=== PATIENT | female | born 1940 | race Caucasian/White ===

== ENCOUNTER 2017-10-08 12:07 | Outpatient (RCR) | payer MEDICARE, OTHER ==
[2017-03-04 14:13] VITALS: BMI 35.8
[~2017-10-08 12:07] MED LIST: ACIPHX20PT PO; ADV250/50 INH; ALB0.5 INH; ALB6.7R INH; ALLO-119 PO; AMLO-96 PO; AMLO-99 PO; BIOT250012 PO; CETI-176 PO; CETI10CA8 PO; ENAL-128 PO; ENAL20TA99 PO; ENOX100D6 SQ; ESCI20TA38 PO; ESOM40CA42 PO; FURO-45 PO; GLUC-135 PO; HCTZ25 PO; LACT1CAP6 PO; LEVO75TA73 PO; MET500 PO; MON10 PO; MULT1CAP41 PO; RABE20TA33 PO; SELE200T32 PO; VITE400 PO; WARF-1 PO; ZOLP-350 PO
[2017-10-11] MEDS ORDERED: METO25TA23 PO (13:18)
[2017-10-11] MEDS ORDERED: WARF-1 PO (13:18)
--- NOTE | 2017-10-13 13:48 | Transitional Care Management ---
Assessment Visit Type: Telephone Visit (10/13) Cardiac: WNL Except Cardiac Comment: 10/13 States she is doing wwell with the new Med- Metoprolol denies the "feeling wierd and dizzy" like one of the meds in the hospital. Doesn't notice any heart irregularities as she was having Respiratory Comment: 10/13 Wear the O2 24/7 and doing OK with tht. Sometimes I have to turn it up a little bit. Enc her to turn it back down once she is feeling less SOB. Uusally i "I start getting to actvie." GI: Nutrition: WNL Except GI Comment: 10/13 "It is going to be a great lerning curve to change my diet. The low NA+ and fluid consumtion, but I can and will do so" Wt Gain/Loss: WNL Except Weight Comment: 10/13 "I lost a fair amt of fluid while I was in the hospital and hope to keep it off. That was a miserable wt gain"Will work real hard to keep to the low sodium and fluid restriction" Constipation?: No Musculoskeletal, Exercise: WNL Except Musculoskeletal, Excercise Com: 10/13 "A little slow but that's OK better than not at all:" Enc her not to try and do to much and dwear herself out. To do sthings in short little periods. Integumentary: WNL Except Integumentary Comment: 10/13 a few bruises from IV stick but they slowly going away" Enc her to put a little heat on them if they were hurting. Feeling of Well Being: WNL Scheduled Follow-Up with Provi: Yes (10/[address] [facility] ) TCM Discharge Criteria Medication Knowledge: 10/13 Went over meds and particulary the new Metoporol. She is aware of her other meds and does use a pill box that she fills once a week. Disease Management/Concern/Wha: 10/13 Went ofve the yellow and red flags of CHF Transitional Care Comment: 10/08 review CHF teaching to include diet, fluid restriction, lasix, metalazone, activity, PCP f/u, monitor labs, bp's 10/13 Went over meds, importance of daily wts and documenting. Also monitoring BPand O2 sats.Will visit her at home tomorrow at 11 AM Copies to: KARELY PACHECO JOAN Oct 13, 2017 13:48
--- NOTE | 2017-10-14 13:28 | Transitional Care Management ---
Assessment Visit Type: Home Visit (10/14) Cardiac: WNL Except Cardiac Comment: 10/13 States she is doing well with the new Med- Metoprolol denies the "feeling wierd and dizzy" like one of the meds in the hospital. Doesn't notice any heart irregularities as she was having 10/14 Denies CP or fierd feelings Respiratory Comment: 10/13 Wear the O2 24/7 and doing OK with tht. Sometimes I have to turn it up a little bit. Enc her to turn it back down once she is feeling less SOB. Uusally i "I start getting to actvie." 10/14 Using 24/7. O2 sats usually aroung 97%. Still hs a very harsh loose cough that causes SOB when happening. Enc her to call Dr office and let him know. She also had a couple other quetions "didn't go home with any lasix nor antibiotics.Concerned about the cough" GI: Nutrition: WNL Except GI Comment: 10/13 "It is going to be a great learning curve to change my diet. The low NA+ and fluid consumtion, but I can and will do so" 10/14 working on the diet" It takes me awhile to change my mind set but I'm getting better at accepting the changes I need to make" Wt Gain/Loss: WNL Except Weight Comment: 10/13 "I lost a fair amt of fluid while I was in the hospital and hope to keep it off. That was a miserable wt gain"Will work real hard to keep to the low sodium and fluid restriction" 10/14 Wt today is down 1# "I feel good about that It means I'm trying" Constipation?: No : WNL Musculoskeletal, Exercise: WNL Except Musculoskeletal, Excercise Com: 10/13 "A little slow but that's OK better than not at all:" Enc her not to try and do to much and wear herself out. To do things in short little periods. 10/14 does have about 10 steps to go up/down to bedrooms-does have hand rails and appeared to be doing OK Integumentary: WNL Except Integumentary Comment: 10/13 a few bruises from IV stick but they slowly going away" Enc her to put a little heat on them if they were hurting. Feeling of Well Being: WNL Socialization: WNL Socialization Comment: 10/14 daughter lives in town and checks up with her and has a neighbor that comes over or calls daily Scheduled Follow-Up with Provi: Yes (10/[address] Pacheco on 10/16 ) Following Discharge Instructio: Yes TCM Discharge Criteria Medication Knowledge: 10/13 Went over meds and particulary the new Metoporol. She is aware of her other meds and does use a pill box that she fills once a week. Disease Management/Concern/Wha: 10/13 Went over the yellow and red flags of CHF 10/14 again went over the red/yellow flags. Transitional Care Comment: 10/08 review CHF teaching to include diet, fluid restriction, lasix, metalazone, activity, PCP f/u, monitor labs, bp's 10/13 Went over meds, importance of daily wts and documenting. Also monitoring BPand O2 sats.Will visit her at home tomorrow at 11 AM 10/14 Home visit. She has a large home which appeared clean and uncluttered. Had the green 50" O2 tubing come from upstairs bedroom. Stqates "I'm very aware of it.," "I know I have been grouchy the past couple of days but this is a big change for me." Encouraged her to be patient and it willl come together for her. She has an appointment with Dr Pacheco on afternoon. Enc her to call him today about her concerns so she isn't worring about them for the next couple of days. I think she has some good questions. Copies to: KARELY PAHCECO JOAN Oct 14, 2017 13:28
--- NOTE | 2017-10-24 14:03 | Transitional Care Management ---
Assessment Visit Type: Telephone Visit (10/24 Sofiya) Cardiac: WNL Except Cardiac Comment: 10/13 States she is doing well with the new Med- Metoprolol denies the "feeling wierd and dizzy" like one of the meds in the hospital. Doesn't notice any heart irregularities as she was having 10/14 Denies CP or funny feelings 10/24 Denies any CP or "funny feelings" Respiratory Comment: 10/13 Wear the O2 24/7 and doing OK with tht. Sometimes I have to turn it up a little bit. Enc her to turn it back down once she is feeling less SOB. Uusally i "I start getting to actvie." 10/14 Using 24/7. O2 sats usually aroung 97%. Still hs a very harsh loose cough that causes SOB when happening. Enc her to call Dr office and let him know. She also had a couple other quetions "didn't go home with any lasix nor antibiotics.Concerned about the cough" 10/24 Feels like she is doing really well. "the cough has resolved" GI: Nutrition: WNL Except GI Comment: 10/13 "It is going to be a great learning curve to change my diet. The low NA+ and fluid consumtion, but I can and will do so" 10/14 working on the diet" It takes me awhile to change my mind set but I'm getting better at accepting the changes I need to make" 10/[address] and they gave e a list of the vegetables that I can have and that made me feel better as I eat a fair amt of veggies" Wt Gain/Loss: WNL Except Weight Comment: 10/13 "I lost a fair amt of fluid while I was in the hospital and hope to keep it off. That was a miserable wt gain"Will work real hard to keep to the low sodium and fluid restriction" 10/14 Wt today is down 1# "I feel good about that It means I'm trying" 10/24 'I'm down 2 more #. I'm working on the low NA+ and fluid restriction and think I'm finally grasping it" Constipation?: No : WNL Musculoskeletal, Exercise: WNL Except Musculoskeletal, Excercise Com: 10/13 "A little slow but that's OK better than not at all:" Enc her not to try and do to much and wear herself out. To do things in short little periods. 10/14 does have about 10 steps to go up/down to bedrooms-does have hand rails and appeared to be doing OK 10/24 "gettting around well. Been out to lunch a couple times with friends and I've been doing things around the house and wear my O2 all the time and it is usually aroung 89-9%" Integumentary: WNL Except Integumentary Comment: 10/13 a few bruises from IV stick but they slowly going away" Enc her to put a little heat on them if they were hurting. Feeling of Well Being: WNL Socialization: WNL Socialization Comment: 10/14 daughter lives in town and checks up with her and has a neighbor that comes over or calls daily10/24 "Have been going out but called my job and told them I probably won't be back until the of the year. I don't want to be around sick people at this time!" Scheduled Follow-Up with Jerry: Yes (10/[address] Pacheco on [place] 10/16 ) Following Discharge Instructio: Yes TCM Discharge Criteria Medication Knowledge: 10/13 Went over meds and particulary the new Metoporol. She is aware of her other meds and does use a pill box that she fills once a week. Disease Management/Concern/Wha: 10/13 Went over the yellow and red flags of CHF 10/14 again went over the red/yellow flags. 10/24 wnt frances her medications and she is very comfortable reiting what she is on. We wnt over the red flags and when to go to DR or ER Transitional Care Comment: 10/08 review CHF teaching to include diet, fluid restriction, lasix, metalazone, activity, PCP f/u, monitor labs, bp's 10/13 Went over meds, importance of daily wts and documenting. Also monitoring BPand O2 sats.Will visit her at home tomorrow at 11 AM 10/14 Home visit. She has a large home which appeared clean and uncluttered. Had the green 50" O2 tubing come from upstairs bedroom. Stqates "I'm very aware of it.," "I know I have been grouchy the past couple of days but this is a big change for me." Encouraged her to be patient and it willl come together for her. She has an appointment with Dr Pacheco on afternoon. Enc her to call him today about her concerns so she isn't worring about them for the next couple of days. I think she has some good questions. 10/21 Unable to contact-left message 10/24 Sofiya sounded very chiper on the phone. "States "I'm trying to do some [place] baking and shopping and I find I'm much stronger even than before I got really sick--In fact I've only taken 1 nap since I've beenhome." Copies to: KARELY PACHECO JOAN Oct 24, 2017 14:03
--- NOTE | 2017-11-08 17:11 | Transitional Care Management ---
Assessment Visit Type: Telephone Visit (11/08 Sofiya) Cardiac: WNL Except Cardiac Comment: 10/13 States she is doing well with the new Med- Metoprolol denies the "feeling wierd and dizzy" like one of the meds in the hospital. Doesn't notice any heart irregularities as she was having 10/14 Denies CP or funny feelings 10/24 Denies any CP or "funny feelings" 11/08 went to see the talent acquisition sourcer- they were going to do a heart cath-but it didn"t happen. Her tests were never done Respiratory Comment: 10/13 Wear the O2 24/7 and doing OK with tht. Sometimes I have to turn it up a little bit. Enc her to turn it back down once she is feeling less SOB. Uusally i "I start getting to actvie." 10/14 Using 24/7. O2 sats usually aroung 97%. Still hs a very harsh loose cough that causes SOB when happening. Enc her to call Dr office and let him know. She also had a couple other quetions "didn't go home with any lasix nor antibiotics.Concerned about the cough" 10/24 Feels like she is doing really well. "the cough has resolved" 11/08 GI: Nutrition: WNL Except GI Comment: 10/13 "It is going to be a great learning curve to change my diet. The low NA+ and fluid consumtion, but I can and will do so" 10/14 working on the diet" It takes me awhile to change my mind set but I'm getting better at accepting the changes I need to make" 10/[address] and they gave e a list of the vegetables that I can have and that made me feel better as I eat a fair amt of veggies" 11/08 "I didn't do well with the my diet program this past week or so.{" Wt Gain/Loss: WNL Except Weight Comment: 10/13 "I lost a fair amt of fluid while I was in the hospital and hope to keep it off. That was a miserable wt gain"Will work real hard to keep to the low sodium and fluid restriction" 10/14 Wt today is down 1# "I feel good about that It means I'm trying" 10/24 'I'm down 2 more #. I'm working on the low NA+ and fluid restriction and think I'm finally grasping it" 11/08 Gained 10 " but I'm ready to get with the program and start working on the diet." Constipation?: No : WNL Musculoskeletal, Exercise: WNL Except Musculoskeletal, Excercise Com: 10/13 "A little slow but that's OK better than not at all:" Enc her not to try and do to much and wear herself out. To do things in short little periods. 10/14 does have about 10 steps to go up/down to bedrooms-does have hand rails and appeared to be doing OK 10/24 "gettting around well. Been out to lunch a couple times with friends and I've been doing things around the house and wear my O2 all the time and it is usually aroung 89-92%" 11/08 Went to see the talent acquisition sourcer in [facility] Dr Rose and he took her of the O2 Sats have been around 89-90%. I encouraged her to wear it at night until she has the heart cath. Mobility Comment: 11/08 I'm getting around pretty well. Mostly in the house-have been to see Abdoulaye and 2 trips to [place] to see the Cardiologists as they were going to do a cardiac cath but it didn't happen as they wanted info from [facility] in [place] Integumentary: WNL Except Integumentary Comment: 10/13 a few bruises from IV stick but they slowly going away" Enc her to put a little heat on them if they were hurting. Feeling of Well Being: WNL Socialization: WN Socialization Comment: 10/14 daughter lives in town and checks up with her and has a neighbor that comes over or calls daily10/24 "Have been going out but called my job and told them I probably won't be back until the of the year. I don't want to be around sick people at this time!" Scheduled Follow-Up with Jerry: No (11/08 at this time she has no Dr appointments- Enc her to call someone on and get in to see one) Following Discharge Instructio: Yes TCM Discharge Criteria Medication Knowledge: 10/13 Went over meds and particulary the new Metoporol. She is aware of her other meds and does use a pill box that she fills once a week. Disease Management/Concern/Wha: 10/13 Went over the yellow and red flags of CHF 10/14 again went over the red/yellow flags. 10/24 wnt frances her medications and she is very comfortable reiting what she is on. We wnt over the red flags and when to go to DR or ER Transitional Care Comment: 10/08 review CHF teaching to include diet, fluid restriction, lasix, metalazone, activity, PCP f/u, monitor labs, bp's 10/13 Went over meds, importance of daily wts and documenting. Also monitoring BPand O2 sats.Will visit her at home tomorrow at 11 AM 10/14 Home visit. She has a large home which appeared clean and uncluttered. Had the green 50" O2 tubing come from upstairs bedroom. Stqates "I'm very aware of it.," "I know I have been grouchy the past couple of days but this is a big change for me." Encouraged her to be patient and it willl come together for her. She has an appointment with Dr Stanford on afternoon. Enc her to call him today about her concerns so she isn't worring about them for the next couple of days. I think she has some good questions. 10/21 Unable to contact-left message 10/24 Sofiya sounded very chiper on the phone. "States "I'm trying to do some [place] baking and shopping and I find I'm much stronger even than before I got really sick--In fact I've only taken 1 nap since I've been home." 11/08 Sofiya has been very disappointed with her out patient care. Still has a harsh cough and at her instance Dr Stanford did order her some Tesslon Pereles But didn't order her Lasix our K+. TEETEE ALCARAZ Nov 08, 2017 17:11
--- NOTE | 2017-11-15 16:44 | Transitional Care Management ---
Assessment Visit Type: Telephone Visit (Sofiya) Cardiac: WNL Except Cardiac Comment: 10/13 States she is doing well with the new Med- Metoprolol denies the "feeling wierd and dizzy" like one of the meds in the hospital. Doesn't notice any heart irregularities as she was having 10/14 Denies CP or funny feelings 10/24 Denies any CP or "funny feelings" 11/08 went to see the pilot fuel engineer- they were going to do a heart cath-but it didn"t happen. Her tests were never done Respiratory Comment: 10/13 Wear the O2 24/7 and doing OK with tht. Sometimes I have to turn it up a little bit. Enc her to turn it back down once she is feeling less SOB. Uusally i "I start getting to actvie." 10/14 Using 24/7. O2 sats usually aroung 97%. Still hs a very harsh loose cough that causes SOB when happening. Enc her to call Dr office and let him know. She also had a couple other quetions "didn't go home with any lasix nor antibiotics.Concerned about the cough" 10/24 Feels like she is doing really well. "the cough has resolved" 11/08 GI: Nutrition: WNL Except GI Comment: 10/13 "It is going to be a great learning curve to change my diet. The low NA+ and fluid consumtion, but I can and will do so" 10/14 working on the diet" It takes me awhile to change my mind set but I'm getting better at accepting the changes I need to make" 10/[address] and they gave e a list of the vegetables that I can have and that made me feel better as I eat a fair amt of veggies" 11/08 "I didn't do well with the my diet program this past week or so.{" Wt Gain/Loss: WNL Except Weight Comment: 10/13 "I lost a fair amt of fluid while I was in the hospital and hope to keep it off. That was a miserable wt gain"Will work real hard to keep to the low sodium and fluid restriction" 10/14 Wt today is down 1# "I feel good about that It means I'm trying" 10/24 'I'm down 2 more #. I'm working on the low NA+ and fluid restriction and think I'm finally grasping it" 11/08 Gained 10 " but I'm ready to get with the program and start working on the diet." Constipation?: No : WNL Musculoskeletal, Exercise: WNL Except Musculoskeletal, Excercise Com: 10/13 "A little slow but that's OK better than not at all:" Enc her not to try and do to much and wear herself out. To do things in short little periods. 10/14 does have about 10 steps to go up/down to bedrooms-does have hand rails and appeared to be doing OK 10/24 "gettting around well. Been out to lunch a couple times with friends and I've been doing things around the house and wear my O2 all the time and it is usually aroung 89-92%" 11/08 Went to see the pilot fuel engineer in [facility] Dr Rose and he took her of the O2 Sats have been around 89-90%. I encouraged her to wear it at night until she has the heart cath. Mobility Comment: 11/08 I'm getting around pretty well. Mostly in the house-have been to see Abdoulaye and 2 trips to [place] to see the Cardiologists as they were going to do a cardiac cath but it didn't happen as they wanted info from [facility] in [place] Integumentary: WNL Except Integumentary Comment: 10/13 a few bruises from IV stick but they slowly going away" Enc her to put a little heat on them if they were hurting. Feeling of Well Being: WNL Socialization: WN Socialization Comment: 10/14 daughter lives in town and checks up with her and has a neighbor that comes over or calls daily10/24 "Have been going out but called my job and told them I probably won't be back until the of the year. I don't want to be around sick people at this time!" Scheduled Follow-Up with Jerry: No (11/08 at this time she has no Dr appointments- Enc her to call someone on and get in to see one) Following Discharge Instructio: Yes TCM Discharge Criteria Medication Knowledge: 10/13 Went over meds and particulary the new Metoporol. She is aware of her other meds and does use a pill box that she fills once a week. Disease Management/Concern/Wha: 10/13 Went over the yellow and red flags of CHF 10/14 again went over the red/yellow flags. 10/24 wnt frances her medications and she is very comfortable reiting what she is on. We wnt over the red flags and when to go to DR or ER Transitional Care Comment: 10/08 review CHF teaching to include diet, fluid restriction, lasix, metalazone, activity, PCP f/u, monitor labs, bp's 10/13 Went over meds, importance of daily wts and documenting. Also monitoring BPand O2 sats.Will visit her at home tomorrow at 11 AM 10/14 Home visit. She has a large home which appeared clean and uncluttered. Had the green 50" O2 tubing come from upstairs bedroom. Stqates "I'm very aware of it.," "I know I have been grouchy the past couple of days but this is a big change for me." Encouraged her to be patient and it willl come together for her. She has an appointment with Dr Stanford on afternoon. Enc her to call him today about her concerns so she isn't worring about them for the next couple of days. I think she has some good questions. 10/21 Unable to contact-left message 10/24 Sofiya sounded very chiper on the phone. "States "I'm trying to do some [place] baking and shopping and I find I'm much stronger even than before I got really sick--In fact I've only taken 1 nap since I've been home." 11/08 Sofiya has been very disappointed with her out patient care. Still has a harsh cough and at her instance Dr Stanford did order her some Tesslon Pereles But didn't order her Lasix our K+. 11/15 Doing OK- No c/o. Jozef mccoy from the program TEETEE ALCARAZ Nov 15, 2017 16:44
== END 2017-11-18 08:13 | disposition home or self-care (01) ==
LOC: TCM 12:07
PROVIDERS: ATTEND Nurse Practitioner
DX: Z02.9 Encounter for administrative examinations, unspecified (principal)

== ENCOUNTER → 2017-11-18 | Outpatient (CLI) | payer MEDICARE, OTHER ==
[2017-03-04 14:13] VITALS: BMI 35.8
[~2017-11-18] MED LIST changes: +METO25TA23 PO
[2017-11-18 13:25] LABS: PLATELET COUNT, AUTOMATED 272 K/uL (150-450)
[2017-11-19 09:41] LABS: INR 1.08
== END ==
LOC: LAB 13:02
PROVIDERS: ATTEND Internal Medicine Cardiovascular Disease
DX: Z01.812 Encounter for preprocedural laboratory examination (principal); I42.9 Cardiomyopathy, unspecified
CPT/HCPCS: 36415; 82310; 82374; 82435; 82565; 82947; 84132; 84295; 84520; 85025; 85610

== ENCOUNTER → 2017-12-18 | Outpatient (CLI) | payer MEDICARE, OTHER ==
[2017-03-04 14:13] VITALS: BMI 35.8
== END ==
LOC: RESP 00:58
PROVIDERS: ATTEND Family Medicine
DX: J98.4 Other disorders of lung (principal)
CPT/HCPCS: 94060; 94726; 94729

== ENCOUNTER → 2018-01-22 | Outpatient (CLI) | payer MEDICARE, OTHER ==
[2017-03-04 14:13] VITALS: BMI 35.8
--- NOTE | 2018-01-22 16:15 | EKG ---
[place] [facility] [place] CHRISTIANO JAFFE : [id number] MR: [id number] V: [id number] EXAM DATE: ORDERING PHYSICIAN: KARELY PACHECO TECHNOLOGIST: Mejia Daly Reason : Blood Pressure : / mmHG Vent. Rate : 062 BPM Atrial Rate : 062 BPM P-R Int : 174 ms QRS Dur : 106 ms QT Int : 506 ms P-R-T Axes : 088 -25 027 degrees QTc Int : 513 ms Normal sinus rhythm Incomplete right bundle branch block Nonspecific ST and T wave abnormality Prolonged QT Abnormal ECG When compared with ECG of 10-OCT-2017 14:29, Incomplete right bundle branch block is now present Confirmed by NAY ADAMS ([id number]) on 01/22/2018 6:01:21 PM Referred By: KARELY PACHECO Confirmed By:NAY ADAMS
== END ==
LOC: CARD 15:34
PROVIDERS: ATTEND Family Medicine
DX: E87.6 Hypokalemia (principal); R94.31 Abnormal electrocardiogram [ECG] [EKG]
CPT/HCPCS: 93005

== ENCOUNTER → 2018-01-24 | Outpatient (CLI) | payer MEDICARE, OTHER ==
[2017-03-04 14:13] VITALS: BMI 35.8
== END ==
LOC: LAB 12:16
PROVIDERS: ATTEND Family Medicine
DX: R19.7 Diarrhea, unspecified (principal)
CPT/HCPCS: 83630; 87045; 87324; 87449

== ENCOUNTER → 2018-03-09 | Outpatient (RCR) | payer MEDICARE, OTHER ==
[2017-03-04 14:13] VITALS: BMI 35.8
[2017-12-09 12:19] VITALS: BP 140/78
[2017-12-09 12:21] VITALS: BP 134/80
--- NOTE | 2017-12-09 13:10 | CARDIAC REHAB PLAN OF CARE ---
Physician: Abdoulaye Patient is being seen: [facility] Diagnosis: Afib, Stent x1 Date of Initial Evaluation: 12/09/17 SHORT TERM GOALS Short Term Goals Due Date: 01/07/18 Short Term Goals: Primary goals to achieve within the first month include increasing exercise tolerance and progression towards higher METS and longer exercise duration. Patient will start her first two weeks of exercise with a HR goal between 100-112bpm, METS of 2.5, and total duration fo 20 minutes. Following the first two weeks, patient's goal will be to increase METS and total duration while maintaining consistent HR range. Short Term Goals Met: Short Term Goals Not Met Due To: DUAL HOSE CEMENTER GOALS Fdc Goal Due Date: Fdc Goals: Long terms goals include gradually increasing total exercise duration towards the recommended 150min/wk of moderate intensity aerobic activity. Improvement in exercise tolerance is also targeted, with goals of maintaining SPO2 levels at 90% or above on room air if possible. We would also like to see resting BP levels reach a more safe and controlled range (e.g. 120/ 80). Geospatial Image Analyst Goals Met: Fdc Goals Not Met Due To: PATIENT'S GOALS Patient Goals Due Date: Patient Goals: Patients goals include becoming less breathless which can be monitored and targeted via sign/symptom reporting as well as SPO2 levels. Patient would also like to lose 15lbs and lose the "stiff" feeling within her joints. Patient Goals Met: Patient Goals Not Met Due To: Cardiac Rehabilitation Plan of Care Comment: The Cardiac Rehab team will help assist with the above goals by monitoring the patient's BP, SPO2, HR, and ECG telemetry with each exercise session. Education and information will be provided regularly and as necessary in order to assist with healthy behavior change. Patient's exercise prescription will be reassessed every 2 weeks pending regular class attendance, in order to aid in proper exercise progression. JUSTINE
[2017-12-10 18:00] VITALS: BP 132/74
[2017-12-10 18:01] VITALS: BP 130/70
[2017-12-12 13:16] VITALS: BP_SYST 116; BP_SYST 124; BP_DIAS 68; BP_DIAS 74
[2017-12-15 12:52] VITALS: BP_SYST 128; BP_SYST 136; BP_DIAS 68; BP_DIAS 72
[2017-12-17 12:33] VITALS: BP_SYST 116; BP_SYST 124; BP_DIAS 58; BP_DIAS 72
[2017-12-19 16:52] VITALS: BP_SYST 102; BP_SYST 122; BP_DIAS 64; BP_DIAS 90
[2017-12-22 17:28] VITALS: BP 118/64
[2017-12-22 17:29] VITALS: BP 108/58
[2017-12-24 18:24] VITALS: BP 124/64
[2017-12-24 18:25] VITALS: BP 110/60
[2017-12-26 11:31] VITALS: BP 138/72
[2017-12-26 11:32] VITALS: BP 122/66
[2017-12-29 12:54] VITALS: BP 120/60
[2017-12-29 12:55] VITALS: BP 112/60
[2018-01-02 17:31] VITALS: BP 118/62
[2018-01-02 17:35] VITALS: BP 114/66
[2018-01-05 12:51] VITALS: BP 122/72
[2018-01-05 12:52] VITALS: BP 120/60
--- NOTE | 2018-01-07 15:16 | CARDIAC REHAB PLAN OF CARE ---
Physician: Walker FLORENTINO Patient is being seen: Nasra Veronique Medical Diagnosis: STENT x1 Date of Onset: 12/09/17 SHORT TERM GOALS Short Term Goals Due Date: 02/04/18 Short Term Goals: Primary goals to achieve within the next month include increasing exercise tolerance and progression towards higher METS and longer exercise duration. Patient will start her first two weeks of exercise with a HR goal between 100-112bpm, Our new goal will be to try to maintain her HR above 100bpm during all exercise. We will aim to increase METs to 3.0 with a goal of reaching 3.5 by the end of the next month Short Term Goals Met: Patient has attended 12 sessions thus far and has successfully increased her average MET level from 1.7 to 2.5-2.8 METS. She has also increased her total duration of exercise from 25 minutes to 37 minutes. She is getting closer to our goal of 150min/week. Short Term Goals Not Met Due To: Patient has met most goals but struggles to keep her HR in the 100-112bpm range. With staff encouragement I believe she would have no problem maintaining this range. DIRECTOR COMMUNICATIONS GOALS Assisted Goal Due Date: 02/06/18 Assisted Goals: Long terms goals include gradually increasing total exercise duration towards the recommended 150min/wk of moderate intensity aerobic activity. Improvement in exercise tolerance is also targeted, with goals of maintaining SPO2 levels at 90% or above on room air if possible. We would also like to see resting BP levels reach a more safe and controlled range (e.g. 120/ 80). Assisted Goals Met: Supervisor Fruit Grading Goals Not Met Due To: PATIENT'S GOALS Patient Goals Due Date: 02/04/18 Patient Goals: Patients goals include becoming less breathless which can be monitored and targeted via sign/symptom reporting as well as SPO2 levels. Patient would also like to lose 15lbs and lose the "stiff" feeling within her joints. Patient Goals Met: The patient has reported losing some of the stiffness previously noted in her right shoulder. This has been noted as she begins to use it more often during her aerobic exercise on the NuStep. She also has begun to use it more during her weight training session. This improvement was noted after only a few days of exercise. Patient maintains a optimistic and happy mood which has improved over the course of the exercise program. Patient Goals Not Met Due To: Staff has yet to monitor patient's weight, but it has not been self reported by the patient as having changed. We will periodically record the patient's weight to monitor her progress. Patient also maintains an SPO2 level of 88% or above. We would like this to maintain above 90% if possible, and will continue to provide breathing techniques to help. Cardiac Rehabilitation Plan of Care Comment: Staff will continue to monitor exercise vitals including ECG, BP, HR, and SPO2 to maintain safe exercise parameters. We will use this information to continue the patient's progression. This patient responds well to positive encouragement, thus we will continue to positively reinforce the information and progressions we provide. Information pertaining to proper exercise breathing techniques will be provided to help patient maintain SPO2 saturation. TAMMID
[2018-01-26 12:48] VITALS: BP 118/60
[2018-01-26 12:49] VITALS: BP 142/70
[2018-01-28 12:47] VITALS: BP_SYST 128; BP_DIAS 70; BP_DIAS 72
[2018-01-30 16:48] VITALS: BP 110/70
[2018-01-30 16:49] VITALS: BP 120/58
[2018-02-02 13:37] VITALS: BP 130/68
[2018-02-02 13:40] VITALS: BP 124/66
[2018-02-04 13:02] VITALS: BP 120/70
[2018-02-04 13:03] VITALS: BP 120/68
--- NOTE | 2018-02-04 15:20 | CARDIAC REHAB PLAN OF CARE ---
Physician: DO Abdoulaye Patient is being seen: Veronique Hammonds Medical Diagnosis: Stent x 1 Date of Initial Evaluation: 12/09/2017 INTERVENTIONS: SHORT TERM GOALS Short Term Goals Due Date: 03/09/18 Short Term Goals: Primary goals to achieve within the next month include increasing exercise tolerance and progression towards higher METS and increase average exercise heart rate range. Patient will aim over the next two weeks to maintain a HR above 100bpm. Overall her HR goal will be to maintain between 100-112bpm. We will aim to continue increasing METs to 3.0 with a goal of reaching 3.5 by the end of the next month. Short Term Goals Met: Over the past two sessions, the patient has reached (on occasion) 3.0 METs on average. We would like to see this achieved more consistently. With encouragement she has no difficulty reaching this level, but lacks the motivation to do it on her own which leads to inconsistency. Short Term Goals Not Met Due To: The patient has only attended 5 sessions since her previous care plan update. She was in [place] visiting [facility] where she did continue to do some mild activity (e.g. walking). Upon returning to [place] , she suffered from bowel movement changes with frequent diarrhea, which has depleted her potassium levels. Since then she has not been feeling well and slowly reacclimatizing herself to regular exercise. She has been been taking supplemental potassium as a result. She has also been experiencing low oxygen levels during exercise, with SPO2 levels dropping down to 83%. In such cases we have given her supplemental oxygen at 2L to maintain adequate saturation levels. Due to all of these set backs, the patient has not increased her exercise time nor energy expenditure over the past month. SENIOR CARE GOALS Long-Term Goal Due Date: 04/08/18 Long-Term Goals: Long terms goals reaching the total exercise duration to the recommended 150min/wk of moderate intensity aerobic activity. The patient is currently reaching (on average) 110min/week during her time here at cardiac rehab.Improvement in exercise tolerance is also targeted, with goals of maintaining SPO2 levels at 90% or above on room air if possible, with a new goal of no longer needing the supplemental oxygen. Long-Term Goals Met: Patient's BP goal (of averaging BP close to 120/80) has been achieved over the previous 2 weeks. This has particularly been noticeable post exercise, which her highest recording being 128/70. This is great improvement from her initial evaluations when her blood pressure averaged 130s or 140s/90 mmHg.Looking back on her initial eval, she has greatly increased her exercise duration (from 17 minutes now achieving 40 minutes), and her overall MET level (from 1.7 to now 3.0). Call Manager Goals Not Met Due To: The patient has seen a lot of set backs over the past month, which has halted some of her m[facility]p progress. She has not reached 150min/week but is progressing towards that goal. PATIENT'S GOALS Patient Goals Due Date: 03/09/18 Patient Goals: Patients goals include becoming less breathless which can be monitored and targeted via sign/symptom reporting as well as SPO2 levels-- including overall being relieved from supplemental oxygen during exercise. Patient would maintains the goal to lose 15lbs. Patient Goals Met: Patient has made little progress towards her personal goals. Her range of motion and overall percevied pain level in her shoulder has decreased slightly, but still bothers her from time to time. Patient Goals Not Met Due To: She has not reported any weight loss, but as a staff we will help her monitor this measurement better in the future to note any improvements. Her SPO2 levels have regressed since beginning this program, but can be due to her recent set backs with her low potassium levels. Cardiac Rehabilitation Plan of Care Comment: We will continue to give the patient the encouragement she needs to suceed at achieving these higher levels of physical activity. She responds well to humor and personal attention and is more likely to reach higher MET levels when given such attention.To shear helper her goal of weight loss we will continue to provide nutritional information and encouraging exercise outside of cardiac rehab. JUSTINE
[2018-02-06 13:02] VITALS: BP 118/70
[2018-02-06 13:03] VITALS: BP 138/68
[2018-02-09 13:00] VITALS: BP_SYST 118; BP_SYST 130; BP_DIAS 60; BP_DIAS 72
[2018-02-09 13:04] VITALS: BP 122/78
[2018-02-11 13:01] VITALS: BP 130/60
[2018-02-11 16:52] VITALS: BP 116/66
[2018-02-13 17:01] VITALS: BP 120/72
[2018-02-13 17:03] VITALS: BP 117/72
[2018-02-16 13:30] VITALS: BP_SYST 122; BP_SYST 128; BP_DIAS 66; BP_DIAS 78
[2018-02-18 17:44] VITALS: BP_SYST 102; BP_SYST 124; BP_DIAS 61; BP_DIAS 62
[2018-02-20 13:15] VITALS: BP 127/68
[2018-02-20 13:16] VITALS: BP 115/70
[2018-02-23 13:20] VITALS: BP 130/68
[2018-02-23 13:34] VITALS: BP 126/66
[2018-02-25 13:33] VITALS: BP 118/56
[2018-02-25 13:35] VITALS: BP 112/60
[2018-02-27 17:04] VITALS: BP 120/68
[2018-02-27 17:05] VITALS: BP 118/68
[2018-03-02 16:48] VITALS: BP 118/64
[2018-03-02 16:49] VITALS: BP 120/72
[2018-03-04 13:11] VITALS: BP_SYST 112; BP_SYST 128; BP_DIAS 60; BP_DIAS 64
[2018-03-06 13:34] VITALS: BP 118/68
[2018-03-06 13:35] VITALS: BP 128/64
[2018-03-09 13:04] VITALS: BP_SYST 122; BP_DIAS 66; BP_DIAS 68
--- NOTE | 2018-03-09 15:25 | CARDIAC REHAB PLAN OF CARE ---
Physician: DO Abdoulaye Patient is being seen: NasraKentonVeronique [facility] Diagnosis: STENT x 1 Date of Initial Evaluation: 12/09/17 INTERVENTIONS: SHORT TERM GOALS Short Term Goals Due Date: 04/08/18 Short Term Goals: Primary goals to achieve within the next month include increasing exercise duration to above 40 minutes of total exercise per session.During her exercise we will try to encourage a HR range between 85-95bpm. Ideally, we should be adding additional track walking time. Walking on the track allows her HR to achieve higher ranges and will be good training for when she graduate from our program. Short Term Goals Met: The patient has gradually increased MET level during her exercise. She is performing at a minimum of 3.0 METs. Short Term Goals Not Met Due To: The patient has not been able to reach HR target ranges above 95bpm. We will adjust the target HR range accordingly. Her tolerance has been fair over the past few weeks. Her oxygen saturation will tend to dip low (84-85%) and she will need to be on supplemental oxygen at times. FDC GOALS Corporate Executive Chef Goal Due Date: 04/08/18 Prison Goals: Long terms goals reaching the total exercise duration to the recommended 150min/wk of moderate intensity aerobic activity. The patient is currently reaching (on average) 110min/week during her time here at cardiac rehab.Improvement in exercise tolerance is also targeted, with goals of maintaining SPO2 levels at 90% or above on room air if possible, with a new goal of no longer needing the supplemental oxygen. Prison Goals Met: No intermediate accountant goals have been met at this time, but will be encouraged to increase duration towards 150min/week with these last 2 weeks. Prison Goals Not Met Due To: The patient has been mainitaining adequate SPO2 during roughly half of her exercise sessions. The remaining sessions her values drop low (84%) and require her to be on supplemental oxygen. With exercise duration, the patient has not been increasing exercise time and has locked in at 40 minutes/session. She will be encouraged to increase this these next two weeks. PATIENT'S GOALS Patient Goals Due Date: 04/08/18 Patient Goals: Patients goals include becoming less breathless which can be monitored and targeted via sign/symptom reporting as well as SPO2 levels-- including overall being relieved from supplemental oxygen during exercise. Patient would maintains the goal to lose 15lbs. Patient Goals Met: Patient has not achieved any of the previously stated personal goals over the past month.However, following a report from her recent echocardiogram her LVEF has improved to 55-60% which was great motivation for her to continue exercising. Patient Goals Not Met Due To: The patient has not been able to consistently maintain high SPO2 levels during exercise. Some days she remains 88% and above while other days she drops to 84% requiring us to put her on supplemental oxygen. Cardiac Rehabilitation Plan of Care Comment: The patient only has 5 sessions remaining. Over these next few sessions we will to continue encouraging longer exercise duration by having her continue her 40 minutes on the NuStep with additional minutes added to walking on the track. To help her attain her goal of remaining off oxygen, we will continue to provide insight and information/ training on how to breath actively during exercise to maintain high SPO2. JUSTINE
== END ==
LOC: CARD 12-09 09:59
PROVIDERS: ATTEND Internal Medicine Interventional Cardiology
DX: I48.91 Unspecified atrial fibrillation (principal); Z95.1 Presence of aortocoronary bypass graft; R06.02 Shortness of breath; Z86.79 Personal history of other diseases of the circulatory system; I50.9 Heart failure, unspecified; J45.909 Unspecified asthma, uncomplicated; M19.90 Unspecified osteoarthritis, unspecified site; Z96.653 Presence of artificial knee joint, bilateral; Z96.643 Presence of artificial hip joint, bilateral; Z87.891 Personal history of nicotine dependence
CPT/HCPCS: 93798

== ENCOUNTER 2018-03-20 10:00 | Outpatient (RCR) | payer MEDICARE, OTHER ==
[2017-03-04 14:13] VITALS: BMI 35.8
[2018-03-11 13:28] VITALS: BP 120/74
[2018-03-11 13:29] VITALS: BP 120/68
[2018-03-13 16:41] VITALS: BP 140/84
[2018-03-13 16:42] VITALS: BP 142/86
[2018-03-16 13:13] VITALS: BP 126/82
[2018-03-16 13:14] VITALS: BP 128/84
[2018-03-18 17:16] VITALS: BP_SYST 112; BP_SYST 122; BP_DIAS 74
[2018-03-20 13:06] VITALS: BP_SYST 122; BP_DIAS 60; BP_DIAS 62
== END 2018-03-20 18:00 | disposition home or self-care (01) ==
LOC: CARD 10:00
PROVIDERS: ATTEND Internal Medicine Interventional Cardiology
DX: I48.91 Unspecified atrial fibrillation (principal); Z95.1 Presence of aortocoronary bypass graft; R06.02 Shortness of breath; Z86.79 Personal history of other diseases of the circulatory system; I50.9 Heart failure, unspecified; J45.909 Unspecified asthma, uncomplicated; M19.90 Unspecified osteoarthritis, unspecified site; Z96.653 Presence of artificial knee joint, bilateral; Z96.643 Presence of artificial hip joint, bilateral; Z87.891 Personal history of nicotine dependence; M77.30 Calcaneal spur, unspecified foot
CPT/HCPCS: 93798

== ENCOUNTER → 2019-06-24 | Outpatient (CLI) | payer MEDICARE, OTHER ==
[2017-03-04 14:13] VITALS: BMI 35.8
[~2019-06-24] MED LIST changes: +AMLO-125 PO; +AMLO-127 PO; -AMLO-96 PO; -AMLO-99 PO
--- NOTE | 2019-06-24 13:42 | RADIOLOGY IMAGING REPORT ---
FACILITY: [facility] - [place] PATIENT NAME: Zachary Alves : 1940 MR: [id number] V: [id number] EXAM DATE: ORDERING PHYSICIAN: KARELY PACHECO TECHNOLOGIST: Location: [facility] Patient: Zachary Alves : 1940 Visit/Account:[id number] Date of Sevice: 06/24/2019 THYROID HISTORY: Thyroid nodules COMPARISON: November 29, 2014 FINDINGS: SIZE: Normal. Right lobe: 3.8 x 1.1 x 1.2 cm Left lobe: 3.5 x 1.1 x 1.2 cm Isthmus: 3 mm PARENCHYMA: Homogeneous. NODULES: Right lobe: * In the superior right lobe there is a peripherally calcified nodule measuring 9 mm in diameter. T here are additional smaller hypoechoic well-circumscribed masses or cysts in the right lobe Left lobe: * In the superior pole there is a slightly lobular slightly hypoechoic hypervascular nodule measurin g 1.9 cm in diameter appears relatively unchanged in size. There are several small cysts also seen i n the left lobe the largest measuring 8 mm in diameter Isthmus: * None discrete. VASCULARITY: Within normal limits. ADDITIONAL FINDINGS: None. IMPRESSION: There is a subcentimeter peripherally calcified nodule in the superior right lobe that appears unchan ged In the superior left lobe there is a 1.9 cm in diameter slightly lobular hypoechoic mass appears unch anged in size dating back to 2014 REFERENCE: 2015 [place] [employer] Management Guidelines for Adult Patients with Thyroid Nodules and D ifferentiated Thyroid Cancer: The [place] [employer] Guidelines Task Force on Thyroid Nodul es and Differentiated Thyroid Cancer. SONOGRAPHIC PATTERNS: * Benign: Purely cystic nodules (no solid component); estimated risk of malignancy <1 percent; no bi opsy recommended. * Very Low Suspicion: Spongiform or partially cystic nodules without any of the sonographic features described in low, intermediate, or high suspicion patterns; estimated risk of malignancy <3 percent; consider FNA at > 2 cm (Observation without FNA is also a reasonable option). * Low Suspicion: Isoechoic or hyperechoic solid nodule, or partially cystic nodule with eccentric so lid areas, without microcalcification, irregular margin or ETE (extra-thyroidal extension), or taller than wide shape; estimated risk of malignancy 5-10 percent; recommend FNA at >1.5 cm. * Intermediate Suspicion: Hypoechoic solid nodule with smooth margins without microcalcifications, E TE (extra-thyroidal extension), or taller than wide shape; estimated risk of malignancy 10-20 percent ; recommend FNA at > 1 cm. * High Suspicion: Solid hypoechoic nodule or solid hypoechoic component of a partially cystic nodule with one or more of the following features: irregular margins (infiltrative, microlobulated), microc alcifications, taller than wide shape, rim calcifications with small extrusive soft tissue component, evidence of ETE (extra-thyroidal extension); estimated risk of malignancy >70-90 percent; recommend FNA at > 1 cm. NOTES: * Although a sonographically suspicious subcentimeter thyroid nodule without evidence of extrathyroi david extension or sonographically suspicious lymph nodes may be observed with close sonographic follow -up rather than pursuing immediate FNA, patient age and preference may modify decision-making. A > 50% interval increase in nodule volume and/or development of new suspicious sonographic features are felt to be a valid reasons for potential re-aspiration of a nodule previously shown to have benig n FNA cytology. Report Dictated By: Ibis Lam MD at 06/24/2019 1:27 PM Report E-Signed By: Ibis Lam MD at 06/24/2019 1:32 PM WSN:[email or web address]
== END ==
LOC: US 02:11
PROVIDERS: ATTEND Family Medicine
DX: E04.1 Nontoxic single thyroid nodule (principal)
CPT/HCPCS: 76536